=== PATIENT | male | born 2000 | race Two or more races ===

== ENCOUNTER 2025-01-15 23:32 | Emergency (ER) | payer OTHER ==
[~2025-01-15] VITALS: Ht 170.2 cm; Wt 70.8 kg
== END 2025-01-16 02:08 | disposition home or self-care (01) ==
LOC: ER 23:36
DX: G89.11 Acute pain due to trauma (principal); J34.89 Other specified disorders of nose and nasal sinuses; Z88.0 Allergy status to penicillin